=== PATIENT | male | born 1940 | race Caucasian/White ===

== ENCOUNTER → 2020-04-24 | Outpatient (REF) | payer MEDICARE, SELFPAY ==
[2020-04-24 18:43] LABS: APPEARANCE, URINE CLEAR (CLEAR); BACTERIA, URINE AUTO 1+ (NEGATIVE); BILIRUBIN, URINE AUTO NEGATIVE (NEGATIVE); BLOOD, URINE BLOOD NEGATIVE (NEGATIVE); COLOR, URINE YELLOW (YELLOW); GLUCOSE, URINE (UA) AUTO NEGATIVE (NEGATIVE); KETONE, URINE AUTO NEGATIVE (NEGATIVE); LEUKOCYTE ESTERASE, URINE AUTO NEGATIVE (NEGATIVE); MUCUS, URINE SMALL (NEGATIVE); NITRITE, URINE AUTO NEGATIVE (NEGATIVE); PROTEIN, URINE AUTO NEGATIVE (NEGATIVE); RBC, URINE AUTO 1 /HPF (0-3); SPECIFIC GRAVITY URINE AUTO 1.012 (1.002-1.035); SQUAMOUS EPITHELIAL CELL UR AU 0 /HPF (0-6); UROBILINOGEN, URINE AUTO 0.2 mg/dL (0.0-2.0); WBC, URINE AUTO 0 /HPF (0-3)
== END ==
LOC: M LAB REF 18:15
PROVIDERS: ATTEND Internal Medicine
DX: J44.9 Chronic obstructive pulmonary disease, unspecified (principal); Z86.16 Personal history of COVID-19; I50.40 Unspecified combined systolic (congestive) and diastolic (congestive) heart failure

== ENCOUNTER → 2020-05-06 | Outpatient (REF) | payer SELFPAY ==
[2020-05-06 16:22] LABS: HEMATOCRIT 35.2 % (42.0-52.0); HEMOGLOBIN 10.8 g/dl (13.5-17.5); MEAN CORPUSCULAR HEMOGLOBIN 31.1 pg (27.0-33.0); MEAN CORPUSCULAR HGB CONC 30.7 g/dl (32.0-36.5); MEAN CORPUSCULAR VOLUME 101.4 fl (80.0-96.0); PLATELET COUNT, AUTOMATED 232 10^3/uL (150-450); RED BLOOD COUNT 3.47 10^6/uL (4.30-6.10); WHITE BLOOD COUNT 7.4 10^3/uL (4.0-10.0)
[2020-05-06 16:55] LABS: BLOOD UREA NITROGEN 18 MG/DL (7-18); CALCIUM LEVEL 8.4 MG/DL (8.8-10.2); CARBON DIOXIDE LEVEL 27 MEQ/L (21-32); CHLORIDE LEVEL 107 MEQ/L (98-107); CREATININE FOR GFR 0.83 MG/DL (0.70-1.30); GLOMERULAR FILTRATION RATE > 60.0 (>35); GLUCOSE, FASTING 120 MG/DL (70-100); SODIUM LEVEL 141 MEQ/L (136-145)
== END ==
LOC: M SHH 15:45
PROVIDERS: ATTEND Internal Medicine
DX: I48.0 Paroxysmal atrial fibrillation (principal); Z79.01 Long term (current) use of anticoagulants

== ENCOUNTER 2020-05-26 18:17 | Emergency (ER) | payer MEDICARE ==
[~2020-05-26] VITALS: Ht 185.4 cm; Wt 80.5 kg
--- OUTSIDE RECORDS SUMMARY | 2020-05-26 19:58 | CCD ---
Author Author [facility] Address Unknown Phone Unavailable Support Name Relationship Address Phone RE Next Of Kin Unknown Unavailable SAMMY INIGUEZ Next Of Kin [address] [place] [address] Re-disclosure Warning The records that you are about to access may contain information from federally-assisted alcohol or drug abuse programs. If such information is present, then the following federally mandated warning applies: This information has been disclosed to you from records protected by federal confidentiality rules (42 CFR part 2). The federal rules prohibit you from making any further disclosure of this information unless further disclosure is expressly permitted by the written consent of the person to whom it pertains or as otherwise permitted by 42 CFR part 2. A general authorization for the release of medical or other information is NOT sufficient for this purpose. The Federal rules restrict any use of the information to criminally investigate or prosecute any alcohol or drug abuse patient.The records that you are about to access may contain highly sensitive health information, the redisclosure of which is protected by Article 27-F of the [facility] Public [facility] law. If you continue you may have access to information: Regarding HIV / AIDS; Provided by facilities licensed or operated by the [facility] Office of Mental Health; or Provided by the [facility] Office for People With Developmental Disabilities. If such information is present, then the following [facility] mandated warning applies: This information has been disclosed to you from confidential records which are protected by state law. State law prohibits you from making any further disclosure of this information without the specific written consent of the person to whom it pertains, or as otherwise permitted by law. Any unauthorized further disclosure in violation of state law may result in a fine or fci sentence or both. A general authorization for the release of medical or other information is NOT sufficient authorization for further disc losure. Insurance Providers Payer name Policy type / Coverage type Policy ID Covered libertarian ID Covered libertarian's relationship to price Policy Price Plan Information MEDICARE [id number] SP [id number] SELF PAY ONLY UNK SP UNK
[2020-05-26 20:26] VITALS: BP 126/72
[2020-05-26 20:31] LABS: BASO % 0.3 % (0.0-1.0); EOS # 0.1 10^3/uL (0.0-0.5); HEMATOCRIT 38.9 % (42.0-52.0); HEMOGLOBIN 11.8 g/dl (13.5-17.5); LYMPH # 0.8 10^3/uL (1.5-5.0); LYMPH % 10.2 % (24.0-44.0); MEAN CORPUSCULAR HEMOGLOBIN 29.4 pg (27.0-33.0); MEAN CORPUSCULAR HGB CONC 30.3 g/dl (32.0-36.5); MEAN CORPUSCULAR VOLUME 96.8 fl (80.0-96.0); MONO # 0.7 10^3/uL (0.0-0.8); MONO % 8.3 % (2.0-8.0); NEUTROPHILS # 6.4 10^3/uL (1.5-8.5); NEUTROPHILS % 79.7 % (36.0-66.0); PLATELET COUNT, AUTOMATED 202 10^3/uL (150-450); RED BLOOD COUNT 4.02 10^6/uL (4.30-6.10)
== END 2020-05-26 21:10 | disposition left against medical advice (07) ==
LOC: M ED 18:17
DX: K92.2 Gastrointestinal hemorrhage, unspecified (principal); T45.515A Adverse effect of anticoagulants, initial encounter; Z53.20 Procedure and treatment not carried out because of patient's decision for unspecified reasons; E78.5 Hyperlipidemia, unspecified; I10 Essential (primary) hypertension; Z79.01 Long term (current) use of anticoagulants

== ENCOUNTER 2020-05-31 11:25 | Emergency (ER) | payer MEDICARE ==
[~2020-05-31] VITALS: Ht 185.4 cm; Wt 80.5 kg
[2020-05-31] MEDS ORDERED: BOOSTRIX/ADACEL VACCINE (DIPHTH/PERTUSS/ACELL/TETANUS) 0.5ML SYR IM ONE (11:35)
--- NOTE | 2020-05-31 12:02 | REP ---
INDICATION: trauma. COMPARISON: None. TECHNIQUE: Helical scanning is acquired. 5 mm axial images were reformatted. Coronal MPR images were generated. FINDINGS: Bone window settings demonstrate an intact bony calvarium. There is no evidence of skull fracture or incidental bony calvarial lesion. The visualized paranasal sinuses appear clear. No intraorbital abnormality is seen. On soft tissue window setting images; the lateral, third, and fourth ventricles are normal in size and position. Vincent-white differentiation pattern is normal above and below the tentorium. There are is no evidence of intracranial hemorrhage. No mass, edema, infarction, or midline shift is seen. No extra-axial fluid collection is appreciated. There is some vascular calcification at the skull base. Generalized volume loss is observed. Mild small vessel changes are seen in the periventricular white matter of the frontal lobes. IMPRESSION: No acute intracranial abnormality. Volume loss and vascular calcification noted. Mild small vessel changes.. <Electronically signed by Milan Sullivan > 05/31/20 1501
--- NOTE | 2020-05-31 12:17 | REP ---
INDICATION: trauma COMPARISON: None. TECHNIQUE: Five views left knee. FINDINGS: There is no evidence of acute fracture, dislocation, or intrinsic bone disease.There is a tiny spur of the lateral patellar facet. There is no radiographic evidence of a significant joint effusion. IMPRESSION: No fracture or dislocation. <Electronically signed by Benji Vincent > 05/31/20 0754
--- NOTE | 2020-05-31 12:18 | REP ---
INDICATION: trauma. COMPARISON: None. TECHNIQUE: Trauma CT protocol with the coronal and sagittal reconstructions provided. FINDINGS: Sagittal reconstruction show loss of normal cervical lordosis there is cervical spondylosis from C2-3 through C6-7 posterior osteophytes are seen from C3-4 through C6-7 anterior osteophytes at all levels. Disc space narrowing is at greatest at C4-5 and C6-7 less at C5-6. Levels above are spared. No compression fractures are noted no prevertebral swelling. The dens shows no fracture there are degenerative changes at its articulation with the anterior arch of C1. The relationship to the lateral masses of C1 was normal craniocervical junction and cervicothoracic junction align normally. Axial images show the spinous processes, lamina, pedicles, facets and transverse processes without evidence of acute fracture there is some hypertrophic facet change at multiple levels. There is central canal stenosis at C6-7 due to combined factors. Similar mild central canal stenosis at C 5-6 and C4-5 with calcifications in the posterior longitudinal ligament and spurs at all 3 levels. Foraminal encroachment at C 3-4 through C6-7 due to uncinate and facet spurs. No compression fracture or bony destructive lesion. The uppermost thoracic vertebral levels and visualized ribs were intact. Lung apices without acute finding there is some fibrotic change in both upper lung zones. IMPRESSION: Cervical spondylosis with marginal osteophytes disc space narrowing greatest at C4-5 through C6-7 with some central canal stenosis at those levels. Foraminal encroachment from C3-4 through C6-7 due to uncinate and facet spurs. No compression fracture, malalignment or prevertebral swelling. Straightening of the spine may be due to positioning or facet arthropathy, degenerative disc disease. No new or acute finding. <Electronically signed by Farhan Youngblood > 05/31/20 0137
--- NOTE | 2020-05-31 12:19 | REP ---
INDICATION: trauma. COMPARISON: NONE. TECHNIQUE: Helical scanning is acquired and 2 mm axial images re-formatted. Coronal MPR images are generated and reviewed. FINDINGS: Preliminary cardiac sonographer views are unremarkable. The patient is edentulous. No mandibular fracture is seen. Zygomatic arches are intact. The nasal bone and inferior maxillary spine show no evidence of fracture. Orbital margins are intact. Paranasal sinuses are clear. Bony nasal septum deviates slightly to the left. No intraorbital hematoma is seen. No facial hematoma is appreciated. IMPRESSION: No mandibular or maxillofacial fracture seen. <Electronically signed by Milan Sullivan > 05/31/20 1005
--- OUTSIDE RECORDS SUMMARY | 2020-05-31 12:21 | CCD ---
Author Author [facility] Organization [facility] Address Unknown Phone Unavailable Care Team Providers Care Washer Blanket Name Role Phone Dylan Urena MD Unavailable Unavailable Dylan Urena MD Unavailable Unavailable Dylan Urena MD Unavailable Unavailable Dylan Urena MD Unavailable Unavailable Dylan Urena MD Unavailable Unavailable Dylan Urena MD Unavailable Unavailable Dylan Urena MD Unavailable Unavailable Dylan Urena MD Unavailable Unavailable Dylan Urena MD Unavailable Unavailable Dylan Urena MD Unavailable Unavailable Dylan Urena MD Unavailable Unavailable Dylan Urena MD Unavailable Unavailable Dylan Urena MD Unavailable Unavailable Dylan Urena MD Unavailable Unavailable Dylan Urena MD Unavailable Unavailable Dylan Urena MD Unavailable Unavailable Dylan Urena MD Unavailable Unavailable Dylan Urena MD Unavailable Unavailable Dylan Urena MD Unavailable Unavailable Dylan Urena MD Unavailable Unavailable Dylan Urena MD Unavailable Unavailable Dylan Urena MD Unavailable Unavailable Dylan Urena MD Unavailable Unavailable Dylan Urena MD Unavailable Unavailable Dylan Urena MD Unavailable Unavailable Dylan Urena MD Unavailable Unavailable Dylan Urena MD Unavailable Unavailable Dylan Urena MD Unavailable Unavailable Dylan Urena MD Unavailable Unavailable Dylan Urena MD Unavailable Unavailable Dylan Urena MD Unavailable Unavailable Dylan Urena MD Unavailable Unavailable Dylan Urena MD Unavailable Unavailable Dylan Urena MD Unavailable Unavailable Dylan Urena MD Unavailable Unavailable Dylan Urena MD Unavailable Unavailable Dylan Urena MD Unavailable Unavailable TURRIN, RUDI Unavailable Unavailable TURRIN, RUDI Unavailable Unavailable TURRIN, RUDI Unavailable Unavailable TURRIN, RUDI Unavailable Unavailable Re-disclosure Warning The records that you are [...] is protected by Article 27-F of the [facility] Public Health law. If you continue you may have access to information: Regarding HIV / AIDS; Provided by facilities licensed or operated by the [facility] Office of Mental Health; or Provided by the [facility] Office for People With Developmental Disabilities. If such information is present, then the following [facility] mandated warning applies: This information has been [...] law may result in a fine or residential sentence or both. A general authorization for the release of medical or other information is NOT sufficient authorization for further disc losure. Encounters Encounter Providers Location Date Indications Data Source(s ) Emergency Attender: RUDI HALLMANConsultant: Dylan gil MD 05/27/2020 11:22:00 AM EST - 05/27/2020 03:58:00 PM [facility] Patient discharged. Outpatient Attender: Dylan Urena MDConsultant: Dylan singh MD 04/25/2020 02:56:00 PM EST - 04/25/2020 03:56:00 PM [facility] Insurance Providers Payer name Policy type / Coverage type Policy ID Covered democrat ID Covered democrat's relationship to justice Policy Justice Plan Information MEDICARE [id number] ADMINSTRATION -O/P [id number] 18 [id number] UN COMMUNITY PLAN XIX [id number] SELF PAY ONLY UNK SP UNK Problems, Conditions, and Diagnoses Code Display Name Description Problem Type Effective Dates Data Source(s) J87181 Other specified postprocedural states Ot her specified postprocedural states Diagnosis 05/27/2020 11:22:00 AM [facility] [id number] Personal history of nicotine dependence Personal history of nicotine dependence Diagnosis 05/27/2020 11:22:00 AM [facility] Z8616 PERSONAL HISTORY OF COVID-19 PERSONAL HISTORY OF COVID -19 Diagnosis 05/27/2020 11:22:00 AM [facility] Z7901 FDC (current) use of anticoagulant s FDC (current) use of anticoagulants Diagnosis 05/27/2020 11:22:00 AM [facility] [id number] CONTACT WITH AND SUSPECTED EXPOSURE TO C OVID-19 CONTACT WITH AND SUSPECTED EXPOSURE TO COVID-19 Diagnosis 05/27/2020 11:22:00 AM [facility] I10 Essential (primary) hypertension Essential (primary) h ypertension Diagnosis 05/27/2020 11:22:00 AM [facility] E039 Hypothyroidism, unspecified Hypothyroidism, unspecifie d Diagnosis 05/27/2020 11:22:00 AM [facility] K922 Gastrointestinal hemorrhage, unspecified Gastrointestinal hemorrhage, unspecified Diagnosis 05/27/2020 11:22:00 AM [facility] K921 Melena Melena Diagnosis 05/27/2020 11:22:00 AM [facility] J449 Chronic obstructive pulmonary disease, u nspecified Chronic obstructive pulmonary disease, unspecified Diagnosis 04/25/2020 02:56:00 PM [facility] 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 : HIRA Lassiter Acct Number.................. : [id number] ROOM. ................. : [facility] MR Number ................... : [id number] Stay type ............. : E/R Discharge Date......... ... : 05/27/20 Admit Date ... ...... : 05/27/20 Admit Phys .................... : VIJI RG Date of ....... : 1940 Family Phys ................... : CYNDIE Sanchez Phone .................. : /1 Age ................................ : 79 Film# .................. .:[id number] Sex ................................. : M Unsigned transcriptions are preliminary reports and do not represent a medical or legal document CHEST PORTABLE [id number] COMPLETE:05/27/20 13:01 [place] [id number] Reason(s): Shortness of Breath AP PORTABLE CHEST X-RAY: FINDINGS: PVH noted. Faint opacity in the left mid-lung to upper lung region which could be an early pneumonia. No other significant findings. IMPRESSION: Pulmonary venous hypertension. Faint opacity in the left mid-lung could be early pneumonia. Electronically Reviewed and Signed By MARTITA CARABALLO MD , 05/28/20 18:23, [facility] Transcribe Initials: HERNANDEZ , Transcribe Date: 05/27/20 18:15, Dictation Date: Copy for: EMERGENCY DEPT via modem Copy for: 710 MED REC DISCHARGED Page 1 of 1 Name Value Range Interpretation Code Description Data Anjelica rce(s) Supporting Document(s) ID Date Data Source [id number] 05/28/2020 08:09:00 [place] [address] RESPIRATORY CARE REPORT ==== ---------NAME------- NUMBER SEX AGE ADMIT DISC. XRAY# F/C TYPEHIRA SAMMY Lassiter [id number] M 79 05/27/20 05/27/20 [id number] X6B E/R DATE OF : 1940 M/R# [id number] #: [id number] TR-1B LOCATION: EMERGENCY DEPT EKG 28370 COMPLE TE:05/27/20 14:05 ED 55019 PHYSICIAN: VIJI RG Name Value Range Interpretation Code Description Data Anjelica rce(s) Supporting Document(s) ID Date Data Source [id number] 05/27/2020 11:22:00 AM [facility] 1 OrderSheet [facility] Emergency Department [address] [place] [address] Phone #: ext- [phone] 05/27/2020 11:18 Patient: SAMMY INIGUEZ Sex: M : 1940 Age: 79yWEIGHT:85.1 kg (M) HEIGHT:74 inches (S) BMI:24.1ALLERGIES: No Known Drug AllergyCHIEF COMPLAINT: dark/tarry stoolsDIAGNOSIS: Hypothyroidism, Gastrointestinal hemorrhage, Rectal hemorrhageLAB ORDERSOrder Description Priority Entered Acknowledged InitialedCBC w Diff STAT 12:05/27/2020 12:09 Viji Neil Riccardo Rachel R.N. M.D.;CMP STAT 12:07 05/27/2020 12:09 Viji Neil Riccardo Rachel R.N. M.D.;Lipase STAT 12:05/27/2020 12:09 Viji Neil Riccardo Rachel R.N. M.D.;PT/PTT STAT 12:05/27/2020 12:09 Viji Neil Riccardo Rachel R.N. M.D.;Troponin-T STAT 12:05/27/2020 12:09 Viji Neil Riccardo Rachel R.N. M.D.;BNP STAT 12:07 05/27/2020 12:09 Viji Neil Riccardo Rachel R.N. M.D.;Type and Screen STAT 12:05/27/2020 12:09 Viji Neil Riccardo Rachel R.N. M.D.;TSH STAT 12:05/27/2020 12:09 Viji Neil Riccardo Rachel R.N. M.D.;Occult Blood Stool 12:07 05/27/2020 12:21 Rohith,Diagnostic 1 slide Rudi Hallman R.N., M.D.;COVID-19 CAH STAT 12:11 05/27/2020 12:25 Rohith(Symptomatic as Rudi Hallman R.N.Defined by CDC) Isai;(05/27/2020) (Not 2 OrderSheet [facility] Emergency Department [address] [place] [address] Phone #: ext- [phone] 05/27/2020 11:18 Patient: SAMMY INIGUEZ Sex: M : 1940 Age: 79yFirst Test) (NotHospitalized) (Not) (NotResident inCongregate CareSetting) (NotEmployed inHealthcare Setting)Lactic Acid STAT 12:11 05/27/2020 12:13 Viji Neil Riccardo Rachel R.N. M.D.;T4 Free STAT 13:44 05/27/2020 14:54 Viji Neil Riccardo Rachel R.N. M.D.;T3 Free STAT 13:44 05/27/2020 14:54 Viji Neil Riccardo Rachel R.N. M.D.;DIAGNOSTIC STUDY ORDERSOrder Description Priority Entered Acknowledged InitialedChest Portable 1 STAT 12:07 05/27/2020 12:35 Rashaad,Rudi Guerra R.N.(Oxygen?(No)) M.D.; Reason for Study: Shortness of BreathMEDICATION/IV/DRIP/FLUID ORDERSOrder Description Priority Entered Acknowledged InitialedProtonix IV Push 40 12:09 05/27/2020 12:36 mg Rashaad (in 10 mL Viji MAYORGA Riccardo Rachel R.N.administer over at M.D.;least 2 minutes,NOW x1)NS IV : 125 mL/hr 13:46 05/27/2020 14:10 Viji Neil Riccardo Rachel R.N. M.D.;GENERAL ORDERSOrder Description Priority Entered Acknowledged InitialedBlood Pressure 12:07 05/27/2020 12:09 Rashaad,Monitor Rudi Hallman R.N., M.D.;Corporate Tax Manager 12:07 05/27/2020 12:09 Rashaad(continuous) Rudi Hallman R.N. 3 OrderSheet [facility] Emergency Department [address] [place] [address] Phone #: ext- [phone] 05/27/2020 11:18 Patient: SAMMY INIGUEZ Sex: M : 1940 Age: 79y M.D.;EKG 12:05/27/2020 12:09 Viji Neil Riccardo Rachel R.N. M.D.;NPO 12:05/27/2020 12:09 Viji Neil Riccardo Rachel R.N. M.D.;Obtain Old EKG 12:05/27/2020 12:09 Viji Neil Riccardo Rachel R.N. M.D.;Obtain Old Records 12:05/27/2020 12:09 Viji Neil Riccardo Rachel R.N. M.D.;Oxygen titrate to 12:05/27/2020 12:09 Rashaad,92% Rudi Hallman R.N., M.D.;Pulse oximeter 12:05/27/2020 12:09 Rashaad(Continuous) Rudi Hallman R.N., M.D.;Saline Lock 12:05/27/2020 12:09 Viji Neil Riccardo Rachel R.N. M.D.;Vitals 12:05/27/2020 12:09 Viji Neil Riccardo Rachel R.N. M.D.;Transfer: 14:05/27/2020 14:54 Viji Neil Riccardo Rachel R.N. M.D.;Consult - 14:05/27/2020 14:54 Rashaad,Hospitalist Rudi Hallman R.N., M.D.;[Electronically signed by Nereida Neil R.N. (15:58 05/27/2020)][Electronically signed by Rudi Hallman M.D. (17:31 05/27/19)][Electronically locked by Nereida Neil R.N. (15:58 05/27/2020)] Name Value Range Interpretation Code Description Data Anjelica rce(s) Supporting Document(s) ID Date Data Source [id number] 05/27/2020 11:22:00 AM EST [facility] 1 Medication Reconciliation Report [facility] Emergency Department [address] [place] [address] Phone #: ext- [phone] 05/27/2020 11:18 Patient: SAMMY INIGUEZ Sex: M : 1940 Age: 79yWeight: 85.1 kgHeight/Length: 74 in.BMI: 24.1ALLERGIES: No Known Drug AllergyThe patient's Home Medications are listed below:THE FOLLOWING MEDICATIONS NEED TO BE RECONCILED: Acetaminophen Oral (325 mg) 2 tablets, 2x a day, prn Amiodarone HCL Oral 200 mg, daily Apixaban Oral (5 mg) 1 tablet, 2x a day Formoterol Fumarate Inhalation, 2x a day Gabapentin Oral 300 mg, 3x a day Nitroglycerin Sublingual, prn Ocular Lubricant Pantoprazole Sodium Oral 40 mg, daily Tamsulosin HCl Oral 0.4 mg, 2x a dayThe source(s) of the original Home Medication information:patient's family memberThe following Medications were given to the patient in the Emergency Department:PROTONIX [IVP] IVP 40 mg, administered: 12:36 05/27/2020NS [IV] IV Fluids bolus 0, then 125 mL/hr, administered: 14:10 05/27/2020The following Medications were prescribed to the patient:None. 2 Medication Reconciliation Report [facility] Emergency Department [address] [place] [address] Phone #: ext- [phone] 05/27/2020 11:18 Patient: SAMMY INIGUEZ Sex: M : 1940 Age: 79y Name Value Range Interpretation Code Description Data Anjelica rce(s) Supporting Document(s) ID Date Data Source [id number] 05/27/2020 11:22:00 AM EST [facility] 1 Medication Administration Record [facility] Emergency Department [address] [place] [address] Phone #: ext- [phone] 05/27/2020 11:18 Patient: SAMMY INIGUEZ Sex: M : 1940 Age: 79yWeight: 85.1 kgHeight/Length: 74 inBMI: 24.1ALLERGIES: No Known Drug Allergy Date/Time Medication Administered Medication OrderedGiven PROTONIX [IVP] (PANTOPRAZOLE Protonix IV Push 40 mg (in 10 mL12:36 05/27/2020 SODIUM) NS, administer over at least 2Nereida Neil, R.N. Dose: 40 mg IVP minutes, NOW x1) Site: #1 left forearmStart NS [IV] NS IV : 125 mL/hr14:10 05/27/2020 Dose: IV FluidsNereida Neil R.NGoldie Rate: 125 mL/hr---- Dispensed: 1000 mL bagContinued Upon Transfer Site: #1 left ugftjfv44:57 05/27/2020Nereida Neil RGoldieNGoldie Name Value Range Interpretation Code Description Data Anjelica rce(s) Supporting Document(s) ID Date Data Source [id number] 05/27/2020 11:22:00 AM [facility] 1 General Instructions [facility] Emergency Department [address] [place] [address] Phone #: ext- [phone] 05/27/2020 11:18 Patient: SAMMY INIGUEZ Sex: M : 1940 Age: 79yMinor GI bleed with melena (lower).Rectal bleed consisting of melena.Hypothyroidism without goiter (New).(Electronically signed by Rudi Hallman M.D. 05/27/2020 17:31) Name Value Range Interpretation Code Description Data Anjelica rce(s) Supporting Document(s) ID Date Data Source [id number] 05/27/2020 11:22:00 AM [facility] 1 Clinical Report - Nurses [facility] Emergency Department [address] [place] [address] Phone #: ext- [phone] 05/27/2020 11:18 Patient: SAMMY INIGUEZ Sex: M : 1940 Age: 79yTRIAGE Arrived by private vehicle. Historian: patient (Daughter in law). Accompanied by (Daughter in law). Triage time: 11:19 05/27/2020. Acuity: LEVEL 3. Chief Complaint: (GI Bleed, SOB). Alert. Onset. (?4 months/?4 days ago). ( Pt states he has had black stools x 4 months, i ntermittent as well as lower abdominal pain. Pt went to a hospital in [facility]Note 3] on 02/24/2020 and was admitted for 55 days due to COVID-19 with COVID pneumonia, was d/c on 04/17/2020. Pt now lives in [place] with son and daughter in law because he was unable to care for himself. Pt has [facility] home health care with PT also. Pt told daughter in law that black stools was only for 4 days not 4 months; Pt is on a blood thinner; Pt was taken to [facility] yesterday, however once daughter in law left pt left AMA because "i'm not gonna let them stick anything up my nose". Daughter in law states [facility] did blood work. Pt states nothing else was done because "they didn't get that far".). He has had a cough productive of sputum (Intermittent). He has had difficulty breathing. ( Pt also c/o headache. Pt incidentally had 1st Moderna COVID-19 vaccine via PCP 2 days ago. Daughter in law states "when we picked him up from detention 01/28/2021 we could tell he was confused". Pt thinks he has worms that he can see in his eyes at night and he knows they are in his head.). Treatment BODY DESIGNER: None. SEPSIS SCREEN: SIRS SCREEN NEGATIVE. SEPSIS SCREEN NEGATIVE. No suspected or confirmed signs of infection present. (11:37 05/27/2020). IZZY COMA SCORE: 14- eyes open- spontaneous (4); best verbal response- confused (4); best motor response- obeys commands (6). (Pt answers all LOC questions appropriately however does have confusion). --11:39 05/27/20 Mayuri Newberry R.N. 11:19 05/27/20. BP: 146/73. MAP: 97. HR: 77. RR: 24. O2 saturation: 99% on room air. Temp: 97.4 F (oral). Pain level now: 10/12. --11:39 05/27/20 Mayuri Newberry R.N. Weight: 85.1 kg measured. Height/Length: 74 inches Per Patient. BMI: 24.1. --11:19 05/27/20 Mayuri Newberry R.N. Medications Amiodarone HCL Oral 200 mg, daily. --11:27 05/27/20 Mayuri Newberry R.N. Apixaban Oral (Tablet 5 mg) 1 tablet, 2x a day. --11:27 05/27/20 Mayuri Newberry R.N. Gabapentin Oral 300 mg, 3x a day. --11:27 05/27/20 Mayuri Newberry R.N. 2 Clinical Report - Nurses [facility] Emergency Department [address] [place] [address] Phone #: ext- [phone] 05/27/2020 11:18 Patient: SAMMY INIGUEZ Sex: M : 1940 Age: 79yPantoprazole Sodium Oral 40 mg, daily. --11:28 05/27/20 Mayuri Newberry R.N.Tamsulosin HCl Oral 0.4 mg, 2x a day. --11:28 05/27/20 Mayuri Newberry R.N.Formoterol Fumarate Inhalation, 2x a day. --11:29 05/27/20 Mayuri Newberry R.N.Acetaminophen Oral (Tablet 325 mg) 2 tablets, 2x a day as needed. --11:29 05/27/20 Mayuri Newberry R.N.Ocular Lubricant. --11:29 05/27/20 Mayuri Newberry R.N.Nitroglycerin Sublingual, as needed. --11:31 05/27/20 Mayuri Newberry R.N.AllergiesNo Known Drug Allergy. --11:29 05/27/20 Mayuri Newberry R.N.PROBLEMS:Myocardial Infarction: (Possible).Heart Disease.Atrial Fibrillation. --11:32 05/27/20 Mayuri Newberry R.N.COVID-19: Onset 02/2020. --12:24 05/27/20 Rudi Hallman M.D.The following entry was modified by Rudi Hallman M.D., 12:24 05/27/20COVID-19. --11:30 05/27/20 Mayuri Newberry R.N..Medication/allergy information source: the patient's family. --11:39 05/27/20 Mayuri Newberry R.N.ADDITIONAL SURGERIES:Appendectomy.Left arm surgery.Right finger surgery. --11:32 05/27/20 Mayuri Newberry R.N.HistoryPAST MEDICAL HX: Immunizations: status is unknown.SOCIAL HX: Former smoker. No alcohol use or drug use. He was offered HIV testing but declined.Patient education was provided. He was offered hepatitis C testing but declined. Patient education wasprovided. He has not traveled outside the [place]Infectious disease exposure: No infectious disease exposure. The patient was exposed to Coronavirus.Symptoms: cough, a headache and altered mental status. Mask placed on patient. Precautions taken. Staffnotified. Patient taken to negative air flow isolation room. (PT WAS PREVIOUSLY COVID POSITIVE).Patient is not a known carrier of tuberculosis, hepatitis, HIV, MRSA or VRE. Patient is not a known carrierof CRE.SELF HARM ASSESSMENT: Self harm assessment was performed. The patient answered "no" to thequestion(s) "Do you have thoughts of harming or kill ing yourself?" and "Do you have a plan for harming orkilling yourself?".ABUSE ASSESSMENT: Abuse assessment. The patient had positive responses to the question(s) "Do you 3 Clinical Report - Nurses [facility] Emergency Department [address] [place] [address] Phone #: ext- [phone] 05/27/2020 11:18 Patient: SAMMY INIGUEZ Sex: M : 1940 Age: 79y feel safe in your home?". Abuse denied. No suspicion of abuse. No report of abuse. NUTRITIONAL RISK ASSESSMENT: The nutritional risk assessment revealed no deficiencies. FALL RISK ASSESSMENT: Fall risk assessment completed. Risk factors identified include patient age greater than 65 years and impairment of cognition. Fall interventions initiated. Patient placed on stretcher. Side rails up x2. Bed in low position. Patient visible from nurses' station and identified as a fall risk. Electronic bed monitor in use. Family at bedside. Call light in reach of patient. Instructed not to get up without assistance. Instructions given to patient including fall prevention information. Verbalizes understanding. FUNCTIONAL ASSESSMENT: Functional assessment performed: uses cane- this mobility impairment is an ongoing problem. LEARNING NEEDS ASSESSMENT: A learning needs assessment was performed. Factors affecting the patient's ability to learn include cognitive limitations. SKIN INTEGRITY ASSESSMENT: Skin integrity risk assessment completed. No skin integrity risk identified. --11:39 05/27/20 Mayrui Newberry R.N. Interventions Identification band on patient. Advanced care plan. Patient has a [id number]-wyaihmppqyj (DNR). Provided by patient's family. A copy was requested and is on the chart. (DNR DNI). --11:39 05/27/20 Mayuri Nweberry R.N.PHYSICAL ASSESSMENT Ambulatory to room. GENERAL / NEURO / PSYCH: Alert. Mood/affect abnormal (paranoid and delusional). HEENT: Pupils equal, round and reactive to light. No facial asymmetry noted. Mucous membranes are pink. RESPIRATORY: Respirations not labored. Cough. No chest wall tenderness. CVS: Capillary refill less than 2 seconds. Pulses within normal limits. GI / : Abdominal tenderness in the suprapubic area and left lower quadrant. Black stool. SKIN: Skin is warm and dry. Poor skin turgor. --12:38 05/27/20 Nereida Neil RNicholas.NURSING PROGRESS NOTES school lunch monitor, NIBP monitor and pulse oximeter placed on patient; panel monitor- Lead II; monitor alarms on; monitor strip added to paper chart. Patient gowned. Reassurance given. Three patient identifiers checked. Call light placed in reach. Side rails up x 2. Bed placed in lowest position. Brakes of bed on. Patient ready for evaluation- ED physician notified. --11:39 05/27/20 Mayuri Newberry R.N. 11:45 05/27/2020 Site #1 started via IV in the left forearm with an 20g angiocath, with aseptic technique and good blood return; one attempt. Blood drawn: rainbow set and cultures x1. Labeled in the presence of the patient and sent to the lab. Saline lock flushed with 10 mL saline. --11:47 05/27/20 Mayuri Newberry, 4 Clinical Report - Nurses [facility] Emergency Department [address] [place] [address] Phone #: ext- [phone] 05/27/2020 11:18 Patient: SAMMY INIGUEZ Sex: M : 1940 Age: 79y R.NGoldie 12:00 05/27/20. Patient ID band checked for patient name and bi rthdate: patient confirmed. Blood samples drawn from the right hand by nurse per protocol ; labeled in presence of the patient and sent to lab: blood culture (2nd set). --12:00 05/27/20 Mayuri Newberry R.N. late entry - 12:00 05/27/20. Patient ID band checked for patient name and birthdate: patient confirmed. COVID-19 specimen obtained by RN via nasopharyngeal swab. Labeled in the presence of the patient and sent to lab. --12:21 05/27/20 Mayuri Newberry R.N. 12:36 05/27/2020 PROTONIX (Pantoprazole Sodium) IVP 40 mg given over 2 minute(s) via site #1. Allergies verified and confirmed 5 rights. IV patency established. IV site checked: no pain, redness, or swelling. IV flushed thoroughly pre- and post-medication administration. IVP given by RN. Information reviewed with patient and family including reason for taking this medication. Verbalizes understanding. --12:36 05/27/20 Nereida Neil R.N. 12:00 05/27/20. BP: 125/67. MAP: 86. HR: 76. RR: 21. O2 saturation: 95%. --12:58 05/27/20 [facility] Tech1 12:15 05/27/20. BP: 117/73. MAP: 87. HR: 70. RR: 15. O2 saturation: 96%. --12:58 05/27/20 [facility] Tech 12:30 05/27/20. BP: 121/70. MAP: 87. HR: 68. RR: 18. O2 saturation: 96%. --12:59 05/27/20 [facility] Tech The patient is calm and resting quietly. Call light placed in reach. Side rails up. Patient waiting for lab and radiology results. --13:37 05/27/20 Nereida Neil R.N. 14:10 05/27/2020 Started bag #1 1000 mL IV Fluids NS; at 125 mL/hr via site #1 via IV pump. Allergies verified and confirmed 5 rights. IV patency established. IV site checked: no pain, redness, or swelling. IV flushed thoroughly pre- and post- medication administration. Information reviewed with patient including reason for taking this medication. Verbalizes understanding. --14:10 05/27/20 Nereida Neil R.N. Rounding: Pain: assessed pain level. Position: turned. Proximity of possessions / care items: call light within easy reach. The patient is calm and resting quietly. --14:11 05/27/20 Nereida Neil R.N. 14:10 05/27/20. BP: 123/79. MAP: 93. HR: 79. RR: 20. O2 saturation: 98%. Pain level now: 09/12. --14:11 05/27/20 Nereida Neil R.N. Rounding: Personal care / toileting: assisted with toileting. The patient is calm and resting quietly. Patient waiting for transportation. --15:34 05/27/20 Nereida Neil R.N.DISPOSITION / DISCHARGE 14:50 05/27/20. Report was given to a nurse via a phone call. Report included patient's care, treatment, 5 Clinical Report - Nurses [facility] Emergency Department [address] [place] [address] Phone #: ext- [phone] 05/27/2020 11:18 Patient: SAMMY INIGUEZ Sex: M : 1940 Age: 79y allergies, condition, vital signs, labs, medications and IV's. All questions were answered. Report was acknowledged. (SUDEEP Bartholomew). --15:05 05/27/20 Nereida Neil R.N. 15:55 05/27/20. BP: 112/73. MAP: 86. HR: 71. RR: 20. O2 saturation: 100%. Temp: 98.2 F. Pain level now: 09/12. --15:57 05/27/20 Nereida Neil R.N. 15:52 05/27/20. Condition at departure: stable. [facility] ([facility] Transported via ambulance by hematology nurse and EMS with monitor, IV and mask. Patient's personal items include: shirt and pants; items were placed in belongings bag, given to the [facility] and transported with the patient. Collection of belongings was witnessed by 1 nurse. --15:57 05/27/20 Nereida Neil R.N. 15:57 05/27/2020 IV Fluids NS via IV site #1 Continued: upon hernández sfer at the rate of 125 mL/hr. 500 mL remaining bag #1. IV patency established. IV site checked: no pain, redness, or swelling. IV flushed thoroughly. --15:57 05/27/20 Nereida Neil R.N. 15:58 05/27/2020 Site #[address] upon transfer; patent, no pain and no signs of infection or infiltration. Good blood return present. --15:58 05/27/20 Neil, Nereida, R.N. Departure time: 15:53 05/27/2020. --15:58 05/27/20 Nereida Neil R.N.Locked/Released at 05/27/2020 15:58 by Nereida Neil R.N. Name Value Range Interpretation Code Description Data Anjelica rce(s) Supporting Document(s) ID Date Data Source [id number] 05/27/2020 11:22:00 AM EST [facility] 1 Clinical Report - Physicians/Mid Levels [facility] Emergency Department [address] [place] [address] Phone #: ext- [phone] 05/27/2020 11:18 Patient: SAMMY INIGUEZ Sex: M : 1940 Age: 79y Time Seen: 11:34 05/27/2020; initial patient contact. Arrived- By private vehicle. Historian- patient and family. Disposition decision: 14:27 05/27/2020.HISTORY OF PRESENT ILLNESS Chief Complaint: DARK/TARRY STOOLS. This started 4 months ago, intermittently, has been mild and is still present. It has been intermittent. The patient has had dark black stools and mild rectal bleeding and nausea but not had rectal pain or hard stools. No constipation, vomiting, diarrhea or abdominal pain. (pt was in residential for 5 yrs and came out in then admitted in [place], [place] on 02-24-20 for Covid PNA, D/C on 04-17-20 w negative Covid test to son's house in [facility] nearby because cannot take care of himself; pt has numerous complaints, was at [facility] yesterday and left AMA because of hsi paranoid PD per [id number]; pt is on Eliquis; pt is DNR/DNI). No recent travel. No known contact with a sick individual. Similar symptoms previously. Patient has had similar symptoms occasionally. Recent medical care: The patient was seen recently at another facility and hospitalized.REVIEW OF SYSTEMSThe patient has had dizziness. No fainting episodes, weakness, fever, blurred vision or sore throat. Noepistaxis, chest pain, hematuria, skin rash or enlarged lymph nodes. No chills or joint pain. The patienthas had a mild cough productive of scant amounts of sputum. He has had mild difficulty breathing. Allother systems reviewed and are negative.PAST HISTORYSee nurses notes. Problems: Hypertension. Benign Prostatic Hypertrophy. COVID-19. Paranoid PD. Myocardial Infarction. (Possible ) Heart Disease. Atrial Fibrillation. Additional Surgeries: Appendectomy. Left arm surgery. 2 Clinical Report - Physicians/Mid Levels [facility] Emergency Department [address] [place] [address] Phone #: ext- [phone] 05/27/2020 11:18 Patient: SAMMY INIGUEZ Sex: M : 1940 Age: 79y Right finger surgery. Medications: Nitroglycerin Sublingual, as needed. Ocular Lubricant. Acetaminophen Oral (Tablet 325 mg) 2 tablets, 2x a day as needed. Formoterol Fumarate Inhalation, 2x a day. Tamsulosin HCl Oral 0.4 mg, 2x a day. Pantoprazole Sodium Oral 40 mg, daily. Gabapentin Oral 300 mg, 3x a day. Apixaban Oral (Tablet 5 mg) 1 tablet, 2x a day. Amiodarone HCL Oral 200 mg, daily. Allergies: No Known Drug Allergy.SOCIAL HISTORYFormer smoker. No alcohol use or drug use.ADDITIONAL NOTESThe nursing notes have been reviewed with agreement regarding the chief complaint, HPI, ROS, PMH andpatient medications and allergies.PHYSICAL EXAMVital Signs: 05/27/2020 11:19 BP: 146/73. MAP: 97. HR: 77. RR: 24. O2 saturation: 99% on room air.Temp: 97.4 F. Pain level now: 7/10. Have been reviewed. Oxygen saturation normal.Appearance: Alert. Oriented X3. No acute distress.Eyes: Pupils equal, round and reactive to light. Eyes normal inspection.ENT: Nose normal. Pharynx normal.Neck: Normal inspection. Neck supple.CVS: Normal heart rate and rhythm. Heart sounds normal. Pulses normal.Respiratory: No respiratory distress. Mildly decreased air movement in the bases bilaterally. Painlessinspiration.Abdomen: Soft and nontender. Bowel sounds normal. No organomegaly. No mass.Back: Normal inspection.Rectal: Dark brown stool. Rectal exam normal and nontender.Skin: Skin warm and dry. Normal skin color. No rash. Normal skin turgor.Extremities: Extr emities exhibit normal ROM. No lower extremity edema.Neuro: Oriented X 3. No motor deficit. No sensory deficit.LABS, X-RAYS, AND EKGEKG: No acute process. No acute ischemia. Normal sinus rhythm. Rate: 72/min. old inferior GA, oldantero- lateral GA. Prior EKG unavailable. The study has been interpreted contemporaneously by me.The EKG appears to be a good tracing. Interpretation time: 12:01 05/27/2020.Chest X-ray: (PVH, possible faint left mid lung pna). Views: AP (portable). The X-rays were interpreted 3 Clinical Report - Physicians/[facility] Emergency Department [address] [place] [address] Phone #: ext- [phone] 05/27/2020 11:18 -------- Patient: SAMMY INIGUEZ Sex: M : 1940 Age: 79yby the radiologist. Interpretation time: 12:39 05/27/2020.Laboratory Tests: Laboratory tests have been ordered, with results reviewed and considered in themedical decision making process.T4 Free: (ARTURO: 05/27/2020 11:45) ( MsgRcvd 05/27/2020 14:32) Final results Test Result Flag Units (Reference) T4 FREE 0.36 L NG/DL (0.93 - 1.70)COVID-19 CAH: (ARTURO: 05/27/2020 12:05) ( [facility] 05/27/2020 13:13) Final results Test Result Flag Units (Reference) COVID-19 NOT DETECTED COVID-19 REENTER NOT DETECTED { PROCEDURAL CONTROL VALID KIT LOT # [id number] 05/27/20.1311.JNL. KIT EXP DATE _06/21/20 05/27/20.1311.JNL. NORMAL RANGE IS NOT DETECTEDNEGATIVE RESULTS SHOULD BE TREATEDAS PRESUMPTIVE AND, IF INCONSISTENT WITHCLINICAL SIGNS AND SYMPTOMS OR NECESSARY FOR PATIENT MANAGEMENT, SHOULDBETESTED WITH DIFFERENT AUTHORIZED OR CLEARED MOLECULAR TESTS. NEGATIVE RESULTSDO NOT PRECLUDE [id number] AND SHOULD NOT BE USED THE SOLE BASISFOR PATIENT MANAGEMENT DECISIONS.Lactic Acid: (ARTURO: 2020 11:45) ( [facility] 05/27/2020 12:46) Final results Test Result Flag Units (Reference) LACTIC ACID 3.0 H MMOL/L (0.2 - 2.2)CBC w Diff: (ARTURO: 05/27/2020 11:45) ( [facility] 05/27/2020 12:25) Final results Test Result Flag Units (Reference) CBC W/AUTOMATED DIFF COMPLETE BLOOD COUNT WBC 7.0 10/uL (4.2 - 11.0) RBC 4.10 L 10/uL (4.50 - 6.30) HEMOGLOBIN 12.4 L g/dL (14.0 - 16.0) HEMATOCRIT 38.6 L % (41.0 - 51.0) MCV 94.1 H fL (80.0 - 94.0) MCH 30.2 pg (27.0 - 34.0) MCHC 32.1 g/dL (31.0 - 36.0) RDW 16.5 H % (11.5 - 14.8) PLATELETS 195 10/uL (150 - 450) MPV 9.4 fL (7.4 - 10.4) NEUT 71.9 % (37.0 - 80.0) LYMPH 14.0 L % (25.0 - 40.0) MONO 10.1 H % (3.0 - 8.0) EOS 3.1 % (0.0 - 7.0) BASO 0.6 % (0.0 - 2.0) %IG 0.3 H % (0.0 - 0.0) %NRBC 0.0 % (0.0 - 0.0) #NEUT 5.04 10/uL (2.00 - 6.90) #LYMPH 0.98 10/uL (0.60 - 3.40) #MONO 0.71 10/uL (0.00 - 0.90) #EOS 0.22 10/uL (0.00 - 0.70) #BASO 0.04 10/uL (0.00 - 0.20) #IG 0.02 10/uL (0.00 - 0.10) #NRBC 0.00 10/uL (0.00 - 0.00) MANUAL DIFF NOT INDICATED RBC MORPH NOT INDICATEDCMP: (ARTURO: 05/27/2020 11:45) ( MsgRcvd 05/27/2020 13:14) Final results 4 Clinical Report - Physicians/Mid Levels [facility] Emergency Department [address] [place] [address] Phone #: ext- [phone] 05/27/2020 11:18 Patient: SAMMY INIGUEZ Sex: M : 1940 Age: 79y Test Result Flag Units (Reference) COMPREHENSIVE METABOLIC PANEL COMPREHENSIVE METABOLIC PANEL SODIUM 135 mEq/L (134 - 153) POTASSIUM 4.9 mEq/L (3.6 - 5.0) CHLORIDE 104 mEq/L (98 - 107) CO2 23 MEQ/L (22 - 30) GLUCOSE 159 H MG/DL (70 - 99) BUN 16 MG/DL (7 - 21) CREATININE 0.8 MG/DL (0.7 - 1.5) BUN/CREAT 20 (8 - 27) TOTAL PROTEIN 6.6 G/DL (6.3 - 8.2) ALBUMIN 3.3 L G/DL (3.9 - 5.0) GLOBULIN 3.3 H GM/DL (2.4 - 3.2) A/G RATIO 1.0 (0.8 - 2.0) CALCIUM 8.5 MG/DL (8.4 - 10.2) TOTAL BILI <0.7 MG/DL (0.2 - 1.3) ALKALINE PHOS 63 U/L (38 - 126) SGOT/AST 23 U/L (5 - 40) SGPT/ALT 12 U/L (7 - 56) ANION GAP 8.0 mmol/L (8.0 - 16.0) AGE 79 yrs NON-AA GFR >60 mL/min AFR AMER GFR >60 mL/min Male GFR Interprentation 20-49 yrs >60 mL/min Hravef81-61 yrs >56 mL/min Normal 60-69 yrs >49 mL/min Normal 70-79yrs>42 mL/min Normal 80 and above >35 mL/min Normal Female GFRInterpretation 20-39 yrs >60 mL/min Normal 40-49 yrs >58 mL/minNormal 50-59 yrs >51 mL/min Normal 60-69 yrs >45 mL/min Nknukn88-25 yrs >39 mL/min Normal 80 and above >32 mL/min NormalLipase: (ARTURO: 05/27/2020 11:45) ( MsgRcvd 05/27/2020 12:50) Final results Test Result Flag Units (Reference) LIPASE 17 U/L (13 - 60)PT/PTT: (ARTURO: 05/27/2020 11:45) ( MsgRcvd 05/27/2020 12:29) Final results Test Result Flag Units (Reference) PROTIME 14.3 SECONDS (11.0 - 15.5) INR 1.06 (0.93 - 1.23) PTT 31.7 SECONDS (24.8 - 36.7) \\BLDo\\INR INTERPRETATION\\BLDx\\ Therapeutic range for Coumadin andrelated oral anticoagulants. -International Normalized Ratio (INR): 2.0 - 3.0 for VenousThrombosis, Pulmonary Embolus, Tissue heart valves, Acute [place] Atrial Fibrillation, Valvular heart diseaseand recurrent Systemic Embolism. -International Normalized Ratio (INR): 2.5 - 3.5 forMechanical Prosthetic valve.Troponin-T: (ARTURO: 05/27/2020 11:45) ( [facility] 05/27/2020 14:00) Final results Test Result Flag Units (Reference) TROPONIN T 0.02 NG/ML (0.00 - 0.10) TROPONIN T0.1 ng/ml Recommended as the clinical threshold value forTroponin T.BNP: (ARTURO: 05/27/2020 11:45) ( [facility] 05/27/2020 13:02) Final results Test Result Flag Units (Reference) BNP 402 PG/ML (0 - 450) 5 Clinical Report - Physicians/Mid Levels [facility] Emergency Department [address] [place] [address] Phone #: ext- [phone] 05/27/2020 11:18 Patient: SAMMY INIGUEZ Sex: M : 1940 Age: 79y Type and Screen: (ARTURO: 05/27/2020 11:45) ( [facility] 05/27/2020 13:25) Final results Test Result Flag Units (Reference) ABO GROUP O RH TYPE POSITIVE AB SCREEN NEGATIVE (NORMAL: NEGAT { ABO/RH REENTER O POSITIVE{ AB SCREEN RE-ENTER NEGATIVE TSH: (ARTURO: 05/27/2020 11:45) ( [facility] 05/27/2020 13:15) Final results Test Result Flag Units (Reference) TSH 46.69 H uIU/mL (0.47 - 5.01) Occult Blood Stool Diagnostic 1 slide: (ARTURO: 05/27/2020 12:15) ( [facility] 05/27/2020 12:45) Final results Test Result Flag Units (Reference) OCCULT BLOOD POSITIVE A (NORMAL: NEGAT OCCULT BLOOD REENTER POSITIVE A (NORMAL: NEGAT { HEMOCCULT LOT # [id number] [id number] ){ LOT EXP DATE 08.24 ){ PROCEDURAL CONTROL POS/NEG VALID ) EKG: (ARTURO: 05/27/2020 12:07) ( [facility] 05/27/2020 14:17) In Progress Chest Portable 1 View: (ARTURO: 05/27/2020 12:07) ( [facility] 05/27/2020 13:01) In Progress CHEST PORTABLE Reason(s): Shortness of Breath TRANSPORTATION: P IV? O2? Oxygen?(No) Room: ED.PROGRESS AND PROCEDURESCourse of Care: 13:45 05/27/20. workup all in and reviewed, occult blood positive, H/H low nml, CXRshows PVH, pt has lower GI bleed on Eliquis, will attempt to transfer to [facility], since we have no GI here, ptagrees and very stable 14:25 05/27/20. [facility] has no GI so [facility] called; Dr. Kidd, hospitalist at [place], called back and case discussed and he accepted pt for transfer; pt stable and agrees to transfer. Critical care performed (60 minutes). Time is exclusive of separately billable procedures. Time includes: direct patient care, patient reassessment, coordination of patient care, interpretation of data (laboratory data and chest xrays), medical consultation and documentation of patient care- see progress notes. Patient and relative counseled in person regarding the patient's stable condition, test results, diagnosis and need for transfer. Patient and relative agrees with plan of care. Disposition: Benefits, risks and alternatives to transfer explained to patient and relative. Transferred. 6 Clinical Report - Physicians/Mid Levels [facility] Emergency Department [address] [place] [address] Phone #: ext- [phone] 05/27/2020 11:18 Patient: SAMMY INIGUEZ Sex: M : 1940 Age: 79y Summary of care (CCDA) provided to transport team, patient and transfer facility via paper. [facility]. Condition: good and stable.CLINICAL IMPRESSION Minor GI bleed with melena (lower). Rectal bleed consisting of melena. 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 05/27/2020 17:31) Name Value Range Interpretation Code Description Data Anjelica rce(s) Supporting Document(s) ID Date Data Source [id number] 05/27/2020 12:43:00 PM EST [facility] Name Value Range Interpretation Code Description Data [facility] rce(s) Supporting Document(s) OCCULT BLOOD POSITIVE NORMAL: NEGATIVE A [facility] OCCULT BLOOD REENTER POSITIVE NORMAL: NEGATIVE A [facility] { HEMOCCULT LOT # [id number] [id number] ){ LOT EXP DATE 08.24 ){ PROCEDURAL CONTROL POS/NEG VALID ) ID Date Data Source [id number] 05/27/2020 12:05:00 PM EST [facility] Name Value Range Interpretation Code Description Data [facility] Supporting Document(s) COVID19 Case rprt NOT DETECTED [facility] This lab was ordered by [facility] and reported by [facility]. ID Date Data Source [id number] 05/27/2020 01:12:00 PM EST [facility] NOT DETECTEDNOT DETECTED{ PROC EDURAL CONTROL VALID KIT LOT # [id number] 05/27/20.1312.JNL. KIT EXP DATE _06/21/20 05/27/20.1312.JNL. NORMAL RANGE IS NOT DETECTEDNEGATIVE RESULTS SHOULD BE TREATED PRESUMPTIVE AND, IF INCONSISTENT WITHCLINICAL SIGNS AND SYMPTOMS OR NECESSARY FOR PATIENT MANAGEMENT, SHOULD BETESTED WITH DIFFERENT AUTHORIZED OR CLEARED MOLECULAR TESTS. NEGATIVE RESULTSDO NOT PRECLUDE SARS-CoV-2 INFECTION AND SHOULD NOT BE USED THE SOLE BASISFOR PATIENT MANAGEMENT DECISIONS. Name Value Range Interpretation Code Description Data Anjelica rce(s) Supporting Document(s) ID Date Data Source [id number] 05/30/2020 06:40:00 AM [facility] Name Value Range Interpretation Code Description Data Anjelica rce(s) Supporting Document(s) Triiodothyronine (T3) Free [Mass/volume] in Serum or Plasma 1.6 pg/ mL 2.0-4.4 L [facility] ID Date Data Source [id number] 05/27/2020 12:24:00 PM [facility] Name Value Range Interpretation Code Description Data [facility] rce(s) Supporting Document(s) CBC W/AUTOMATED DIFF [facility] COMPLETE BLOOD COUNT Leukocytes [#/volume] in Blood by Automated count 7.0 10^3/uL 4.2 - 1 1.0 [facility] Erythrocytes [#/volume] in Blood by Automated count 4.10 10^6/uL 4. 50 - 6.30 L [facility] Hemoglobin [Mass/volume] in Blood 12.4 g/dL 14.0 - 16.0 L [facility] Hematocrit [Volume Fraction] of Blood by Automated count 38.6 % 4 1.0 - 51.0 L [facility] Erythrocyte mean corpuscular volume [Entitic volume] by Auto mated count 94.1 fL 80.0 - 94.0 H [facility] Erythrocyte mean corpuscular hemoglobin [Entitic mass] by Automated count 30.2 pg 27.0 - 34.0 [facility] Erythrocyte mean corpuscular hemoglobin concentration [Mass/volume] by Automated count 32.1 g/dL 31.0 - 36.0 [facility] Erythrocyte distribution width [Ratio] by Automated count 16.5 % 11.5 - 14.8 H [facility] Platelets [#/volume] in Blood by Automated count 195 10^3/uL 150 - 45 0 [facility] Platelet mean volume [Entitic volume] in Blood by Automated count 9.4 fL 7.4 - 10.4 [facility] Neutrophils/100 leukocytes in Blood by Automated count 71.9 % 37. 0 - 80.0 [facility] Lymphocytes/100 leukocytes in Blood by Manual count 14.0 % 25.0 - 40.0 L [facility] Monocytes/100 leukocytes in Blood by Automated count 10.1 % 3.0 - 8.0 H [facility] Eosinophils/100 leukocytes in Blood by Automated count 3.1 % 0.0 - 7.0 [facility] Basophils/100 leukocytes in Blood by Automated count 0.6 % 0.0 - 2.0 [facility] %IG 0.3 % 0.0 - 0.0 H [facility] %NRBC 0.0 % 0.0 - 0.0 [facility] al Neutrophils [#/volume] in Blood by Automated count 5.04 10^3/uL 2.00 - 6.90 [facility] Lymphocytes [#/volume] in Blood by Automated count 0.98 10^3/uL 0.60 - 3.40 [facility] Monocytes [#/volume] in Blood by Automated count 0.71 10^3/uL 0.00 - 0.90 [facility] Eosinophils [#/volume] in Blood by Automated count 0.22 10^3/uL 0.00 - 0.70 [facility] Basophils [#/volume] in Blood by Automated count 0.04 10^3/uL 0.00 - 0.20 [facility] #IG 0.02 10^3/uL 0.00 - 0.10 [facility] ospital #NRBC 0.00 10^3/uL 0.00 - 0.00 [facility] ospital MANUAL DIFF NOT INDICATED [facility] RBC MORPH NOT INDICATED [facility] spital ID Date Data Source [id number] 05/27/2020 12:29:00 PM EST [facility] Name Value Range Interpretation Code Description Data Anjelica rce(s) Supporting Document(s) Prothrombin time (PT) 14.3 SECONDS 11.0 - 15.5 [facility] INR in Platelet poor plasma by Coagulation assay 1.06 0.93 - 1. 23 [facility] aPTT in Blood by Coagulation assay 31.7 SECONDS 24.8 - 36.7 [facility] \\BLDo\\INR INTERPRETATION\\BLDx\\ Therapeutic range for Coumadin and related oral anticoagulants. - International Normalized Ratio (INR): 2.0 - 3.0 for Venous Thrombosis, Pulmonary Embolus, Tissue heart valves, Acute [place] Atrial Fibrillation, Valvular heart disease and recurrent Systemic Embolism. - International Normalized Ratio (INR): 2.5 - 3.5 for Mechanical Prosthetic valve. ID Date Data Source [id number] 05/27/2020 12:46:00 PM [facility] Name Value Range Interpretation Code Description Data Anjelica rce(s) Supporting Document(s) Lactate [Moles/volume] in Serum or Plasma 3.0 MMOL/L 0.2 - 2.2 H [facility] ID Date Data Source [id number] 05/27/2020 12:50:00 PM [facility] Value Range Interpretation Code Description Data Anjelica rce(s) Supporting Document(s) Lipase [Enzymatic activity/volume] in Serum or Plasma 17 U/L 13 - 60 [facility] ID Date Data Source [id number] 05/27/2020 01:02:00 PM [facility] Value Range Interpretation Code Description Data Anjelica rce(s) Supporting Document(s) BNP 402 PG/ML 0 - 450 [facility] ID Date Data Source [id number] 05/27/2020 01:14:00 PM [facility] Value Range Interpretation Code Description Data Anjelica rce(s) Supporting Document(s) COMPREHENSIVE METABOLIC PANEL [facility] COMPREHENSIVE METABOLIC PANEL Sodium [Moles/volume] in Serum or Plasma 135 mEq/L 134 - 153 [facility] Potassium [Moles/volume] in Serum or Plasma 4.9 mEq/L 3.6 - 5.0 [facility] Chloride [Moles/volume] in Serum or Plasma 104 mEq/L 98 - 107 [facility] Carbon dioxide, total [Moles/volume] in Serum or Plasma 23 MEQ/L 22 - 30 [facility] Glucose [Mass/volume] in Serum or Plasma 159 MG/DL 70 - 99 H [facility] BUN 16 MG/DL 7 - 21 [facility] Creatinine [Mass/volume] in Serum or Plasma 0.8 MG/DL 0.7 - 1.5 [facility] BUN/CREAT 20 8 - 27 [facility] Protein [Mass/volume] in Serum or Plasma 6.6 G/DL 6.3 - 8.2 [facility] Albumin [Mass/volume] in Serum or Plasma 3.3 G/DL 3.9 - 5.0 L [facility] Globulin [Mass/volume] in Serum by calculation 3.3 GM/DL 2.4 - 3.2 H [facility] A/G RATIO 1.0 0.8 - 2.0 [facility] Calcium [Mass/volume] in Serum or Plasma 8.5 MG/DL 8.4 - 10.2 [facility] Bilirubin.total [Mass/volume] in Serum or Plasma <0.7 MG/DL 0.2 - 1.3 [facility] Alkaline phosphatase [Enzymatic activity/volume] in Serum or Plasma 63 U/L 38 - 126 [facility] Aspartate aminotransferase [Enzymatic activity/volume] in Serum or Plasma 23 U/L 5 - 40 [facility] Alanine aminotransferase [Enzymatic activity/volume] in Seru m or Plasma 12 U/L 7 - 56 [facility] Anion gap 3 in Serum or Plasma 8.0 mmol/L 8.0 - 16.0 [facility] AGE 79 yrs [facility] NON-AA GFR >60 mL/min [facility] ital AFR AMER GFR >60 mL/min [facility] spital Male GFR In terprentation 20-49 yrs >60 mL/min Normal 50-59 yrs >56 mL/min Normal 60-69 yrs >49 mL/min Normal 70-79yrs >42 mL/min Normal 80 and above >35 mL/min Normal Female GFR Interpretation 20-39 yrs >60 mL/min Normal 40-49 yrs >58 mL/min Normal 50-59 yrs >51 mL/min Normal 60-69 yrs >45 mL/min Normal 70-79 yrs >39 mL/min Normal 80 and above >32 mL/min Normal ID Date Data Source [id number] 05/27/2020 01:14:00 PM [facility] Name Value Range Interpretation Code Description Data Anjelica rce(s) Supporting Document(s) Thyrotropin [Units/volume] in Serum or Plasma by Detec tion limit <= 0.05 mIU/L 46.69 uIU/mL 0.47 - 5.01 H [facility] ID Date Data Source [id number] 05/27/2020 01:25:00 PM [facility] Name Value Range Interpretation Code Description Data Anjelica rce(s) Supporting Document(s) ABO group [Type] in Blood O [facility] Rh [Type] in Blood POSITIVE [facility] AB SCREEN NEGATIVE NORMAL: NEGATIVE [facility] { ABO/RH REENTER O POSITIVE{ AB SCREEN RE-ENTER NEGATIVE ID Date Data Source [id number] 05/27/2020 02:00:00 PM [facility] Name Value Range Interpretation Code Description Data Anjelica rce(s) Supporting Document(s) TROPONIN T 0.02 NG/ML 0.00 - 0.10 [facility] spital TROPONIN T0.1 ng/ml Recommended as the c linical threshold value forTroponin T. ID Date Data Source [id number] 05/27/2020 02:32:00 PM [facility] Name Value Range Interpretation Code Description Data Anjelica rce(s) Supporting Document(s) Thyroxine (T4) free index in Serum or Plasma by calculation 0.36 NG/DL 0.93 - 1.70 L [facility] ID Date Data Source [id number] 04/25/2020 03:29:00 PM [facility] Name Value Range Interpretation Code Description Data Anjelica rce(s) Supporting Document(s) CBC W/AUTOMATED DIFF [facility] COMPLETE BLOOD COUNT Leukocytes [#/volume] in Blood by Automated count 7.7 10^3/uL 4.2 - 1 1.0 [facility] Erythrocytes [#/volume] in Blood by Automated count 3.77 10^6/uL 4. 50 - 6.30 L [facility] Hemoglobin [Mass/volume] in Blood 11.6 g/dL 14.0 - 16.0 L [facility] [facility] Hematocrit [Volume Fraction] of Blood by Automated count 37.3 % 4 1.0 - 51.0 L [facility] Erythrocyte mean corpuscular volume [Entitic volume] by Auto mated count 98.9 fL 80.0 - 94.0 H [facility] Erythrocyte mean corpuscular hemoglobin [Entitic mass] by Automated count 30.8 pg 27.0 - 34.0 [facility] Erythrocyte mean corpuscular hemoglobin concentration [Mass/volume] by Automated count 31.1 g/dL 31.0 - 36.0 [facility] Erythrocyte distribution width [Ratio] by Automated count 19.0 % 11.5 - 14.8 H [facility] Platelets [#/volume] in Blood by Automated count 327 10^3/uL 150 - 45 0 [facility] Platelet mean volume [Entitic volume] in Blood by Automated count 9.0 fL 7.4 - 10.4 [facility] Neutrophils/100 leukocytes in Blood by Automated count 71.0 % 37. 0 - 80.0 [facility] Lymphocytes/100 leukocytes in Blood by Manual count 14.5 % 25.0 - 40.0 L [facility] Monocytes/100 leukocytes in Blood by Automated count 7.3 % 3.0 - 8.0 [facility] Eosinophils/100 leukocytes in Blood by Automated count 5.4 % 0.0 - 7.0 [facility] Basophils/100 leukocytes in Blood by Automated count 1.0 % 0.0 - 2.0 [facility] %IG 0.8 % 0.0 - 0.0 [facility] %NR[facility] 0.4 % 0.0 - 0.0 H [facility] Neutrophils [#/volume] in Blood by Automated count 5.47 10^3/uL 2.00 - 6.90 [facility] Lymphocytes [#/volume] in Blood by Automated count 1.12 10^3/uL 0.60 - 3.40 [facility] Monocytes [#/volume] in Blood by Automated count 0.56 10^3/uL 0.00 - 0.90 [facility] Eosinophils [#/volume] in Blood by Automated count 0.42 10^3/uL 0.00 - 0.70 [facility] Basophils [#/volume] in Blood by Automated count 0.08 10^3/uL 0.00 - 0.20 [facility] #IG 0.06 10^3/uL 0.00 - 0.10 [facility]ital #NRBC 0.03 10^3/uL 0.00 - 0.00 H [facility] MANUAL DIFF NOT INDICATED [facility] RBC MORPH NOT INDICATED [facility] spital ID Date Data Source [id number] 04/25/2020 04:14:00 PM EST [facility] Name Value Range Interpretation Code Description Data Anjelica rce(s) Supporting Document(s) COMPREHENSIVE METABOLIC PANEL [facility] COMPREHENSIVE METABOLIC PANEL Sodium [Moles/volume] in Serum or Plasma 134 mEq/L 134 - 153 [facility] Potassium [Moles/volume] in Serum or Plasma 4.7 mEq/L 3.6 - 5.0 [facility] Chloride [Moles/volume] in Serum or Plasma 101 mEq/L 98 - 107 [facility] Carbon dioxide, total [Moles/volume] in Serum or Plasma 23 MEQ/L 22 - 30 [facility] Glucose [Mass/volume] in Serum or Plasma 135 MG/DL 70 - 99 H [facility] BUN 12 MG/DL 7 - 21 [facility] Creatinine [Mass/volume] in Serum or Plasma 0.7 MG/DL 0.7 - 1.5 [facility] BUN/CREAT 17 8 - 27 [facility] al Protein [Mass/volume] in Serum or Plasma 6.0 G/DL 6.3 - 8.2 L [facility] Albumin [Mass/volume] in Serum or Plasma 3.4 G/DL 3.9 - 5.0 L [facility] Globulin [Mass/volume] in Serum by calculation 2.6 GM/DL 2.4 - 3.2 [facility] A/G RATIO 1.3 0.8 - 2.0 [facility] Calcium [Mass/volume] in Serum or Plasma 8.5 MG/DL 8.4 - 10.2 [facility] Bilirubin.total [Mass/volume] in Serum or Plasma <0.7 MG/DL 0.2 - 1.3 [facility] Alkaline phosphatase [Enzymatic activity/volume] in Serum or Plasma 78 U/L 38 - 126 [facility] Aspartate aminotransferase [Enzymatic activity/volume] in Serum or Plasma 24 U/L 5 - 40 [facility] Alanine aminotransferase [Enzymatic activity/volume] in Seru m or Plasma 18 U/L 7 - 56 [facility] Anion gap 3 in Serum or Plasma 10.0 mmol/L 8.0 - 16.0 [facility] AGE 79 yrs [facility] al NON-AA GFR >60 mL/min [facility] ital AFR AMER GFR >60 mL/min [facility] Ho spital Male GFR In terprentation 20-49 yrs >60 mL/min Normal 50-59 yrs >56 mL/min Normal 60-69 yrs >49 mL/min Normal 70-79yrs >42 mL/min Normal 80 and above >35 mL/min Normal Female GFR Interpretation 20-39 yrs >60 mL/min Normal 40-49 yrs >58 mL/min Normal 50-59 yrs >51 mL/min Normal 60-69 yrs >45 mL/min Normal 70-79 yrs >39 mL/min Normal 80 and above >32 mL/min Normal ID Date Data Source [id number] 04/25/2020 04:14:00 PM EST [facility] Name Value Range Interpretation Code Description Data Anjelica rce(s) Supporting Document(s) CVE PANEL [facility] LIPID PANEL Cholesterol [Mass/volume] in Serum or Plasma 185 MG/DL 131 - 200 [facility] Deprecated Triglyceride [Mass/volume] in Serum or Plasma 125 MG/DL 3 5 - 160 [facility] HDL 72 MG/DL 29 - 86 [facility] Cholesterol in LDL [Mass/volume] in Serum or Plasma by Direc t assay 108 mg/dL 65 - 175 [facility] Cholesterol.total/Cholesterol in HDL [Mass Ratio] in Serum o r Plasma 2.6 3.4 - 4.9 L [facility] LDL/HDL 1.50 1.00 - 3.55 [facility] ital CVE RISK CHOL/HDL LDL/HDLMEN: 1/2 AVERAGE 3.43 1.00 AVERAGE 4.97 3.55 2X AVERAGE 9.55 6.25 3X AVERAGE 23.99 7.99WOMEN: 1/2 AVERAGE 3.27 1.47 AVERAGE 4.44 3.22 2X AVERAGE 7.05 5.03 3X AVERAGE 11.04 6.14 ID Date Data Source [id number] 04/25/2020 04:21:00 PM EST [facility] Name Value Range Interpretation Code Description Data Anjelica rce(s) Supporting Document(s) URINALYSIS WITH MICROSCOPIC Ca [facility] URINALYSIS SOURCE Clean Catch [facility] ital COLOR yellow NORMAL: Yellow [facility] CLARITY clear NORMAL: Clear [facility] spital Specific gravity of Urine by Test strip 1.015 1.001 - 1.030 [facility] pH 6 5 - 9 [facility] Glucose [Mass/volume] in Urine by Test strip NORM NORMAL: Negat [facility] Bilirubin.total [Presence] in Urine by Test strip NEG NORMAL: Negative [facility] Ketones [Presence] in Urine by Test strip 5 NORMAL: Negative [facility] Protein [Mass/volume] in Urine by Test strip 15 NORMAL: Negat [facility] Nitrite [Presence] in Urine by Test strip NEG NORMAL: Negative [facility] BLOOD NEG NORMAL: Negative [facility] Leukocyte esterase [Presence] in Urine by Test strip 25 GRAHAM L: Negative [facility] Urobilinogen [Mass/volume] in Urine by Test strip NOR less nenita n 1.0 mg/dL [facility] MICROSCOPIC See Below [facility] ital WBC 1 - 3 NORMAL: NONE SEEN [facility] EPITHELIAL FEW NORMAL: NONE SEEN [facility] Mucus [Presence] in Urine sediment by Light microscopy 2+ NOR MAL: NONE SEEN A [facility] Casts [#/area] in Urine sediment by Microscopy low power field See Be low [facility] Hyaline casts [#/area] in Urine sediment by Microscopy low p ower field 1-3 NORMAL: None Seen [facility] ID Date Data Source [id number] 04/26/2020 09:15:00 AM EST [facility] Name Value Range Interpretation Code Description Data Anjelica rce(s) Supporting Document(s) Calcidiol [Moles/volume] in Serum or Plasma 27 NG/ML [facility] VITAMIN-D(2 5HYDROXY) Deficiency: <=20 ng/ml Insufficiency: 21-29 ng/ml Preferred level: => 30 ng/ml Procedure
--- NOTE | 2020-05-31 12:25 | REP ---
INDICATION: trauma COMPARISON: None. TECHNIQUE: Four views left hand. FINDINGS: There is no acute fracture or dislocation. There is an old ulnar styloid fracture. There is a thin curvilinear 3 mm metallic foreign body in the soft tissues anterior to the 1st distal phalanx. Mild diffuse joint space narrowing is noted of the interphalangeal joints with mild scattered spurring. There is mild narrowing of the 2nd and 3rd metacarpophalangeal joints. IMPRESSION: No acute fracture or dislocation. Chronic changes. <Electronically signed by Benji Vincent > 05/31/20 [id number]
[2020-05-31] MEDS ORDERED: LIDOCAINE 2% MDV 20ML VIAL SC ONE (12:55)
[2020-05-31] MEDS ORDERED: BACI500O21 TOP (14:15)
[2020-05-31 15:16] VITALS: BP 154/85
== END 2020-05-31 15:18 | disposition home or self-care (01) ==
LOC: EDBD 11:25 → M ED 11:25
DX: S61.412A Laceration without foreign body of left hand, initial encounter (principal); W01.0XXA Fall on same level from slipping, tripping and stumbling without subsequent striking against object, initial encounter; M25.78 Osteophyte, vertebrae; M47.812 Spondylosis without myelopathy or radiculopathy, cervical region; I10 Essential (primary) hypertension; I48.91 Unspecified atrial fibrillation; Z79.01 Long term (current) use of anticoagulants; Y92.9 Unspecified place or not applicable; Y93.9 Activity, unspecified; Y99.9 Unspecified external cause status